=== PATIENT | male | born 1965 | race Two or more races ===

== ENCOUNTER 2024-10-24 15:15 | Emergency (ER) | payer MEDICAID, OTHER ==
[~2024-10-24] VITALS: Ht 167.6 cm; Wt 72.7 kg
[2024-10-24 15:25] VITALS: PULSE 73; RESP 17; O2SAT 98
[2024-10-24] MEDS ORDERED: AUG875T PO (15:40)
[2024-10-24] MEDS ORDERED: IBUP-1455 PO (15:40)
--- NOTE | 2024-10-24 15:41 | ED.PDOC ---
Eye-HPI HPI Comments 59-YEAR-OLD MALE COMPLAINING OF LEFT UPPER TOOTH PAIN X3 OR FOUR DAYS. STATES HE DOES HAVE A HISTORY OF A CRACKED TOOTH IN THE AREA. HE HAS BEEN HAVING PUS AND DRAINAGE OCCASIONALLY. SAYS HE NEEDS ANTIBIOTICS PRIOR TO GOING TO THE DENTIST. Chief Complaint: Tooth Pain Time Seen by MD: 15:24 Primary Care Provider: none Reviewed Notes: Nurses Notes Allergies: Coded Allergies: NO KNOWN ALLERGIES (Unverified , 10/24/24) Information Source: Patient Mode of Arrival: Ambulatory Past Medical History PAST MEDICAL HISTORY: Denies Surgical History: Denies all surgeries Family History Family History: Reviewed,noncontributory to illness, No family hx of Cancer, No family hx of DM, No family hx of Heart kirill, No family hx of HTN, No family hx ofKidney kirill, No family hx of Liver kirill, No family hx of Lung kirill, No family hx of Stroke Constitutional: denies: chills, diaphoresis, fatigue, fever, malaise, sweats, weakness, others EENTM: reports: mouth pain, mouth swelling; denies: blurred vision, double vision, ear bleeding, ear discharge, ear drainage, ear pain, ear ringing, eye pain, eye redness, hearing loss, nasal discharge, nose bleeding, nose congestion, nose pain, photophobia, tearing, throat pain, throat swelling, voice changes, others Respiratory: denies: cough, hemoptysis, orthopnea, SOB at rest, shortness of breath, SOB with excertion, stridor, wheezing, others Cardiovascular: denies: chest pain, dizzy spells, diaphoresis, Dyspnea on exertion, edema, irregular heart beat, left arm pain, lightheadedness, palpitations, PND, syncope, others Gastrointestinal: denies: abdomen distended, abdominal pain, blood streaked bowels, constipated, diarrhea, dysphagia, difficulty swallowing, hematemesis, melena, nausea, poor appetite, poor fluid intake, rectal bleeding, rectal pain, vomiting, others Genitourinary: denies: burning, dysuria, flank pain, frequency, hematuria, incontinence, penile discharge, penile sore, pain, testicle pain, testicle swelling, urgency, others Neurological: denies: dizziness, fainting, headache, left sided numbness, left sided weakness, numbness, paresthesia, pre-existing deficit, right sided numbness, right sided weakness, seizure, speech problems, tingling, tremors, weakness, others Musculoskeletal: denies: back pain, gout, joint pain, joint swelling, muscle pain, muscle stiffness, neck pain, others Integumetry: denies: bruises, change in color, change in hair/nails, dryness, laceration, lesions, lumps, rash, wounds, others Allergic/Immunocompromised: denies: Difficulty Healing, Frequent Infections, Hives, Itching, others Hematologic/Lymphatic: denies: anemia, blood clots, easy bleeding, easy bruising, swollen glands, others Physical Exam General Appearance: No Apparent Distress, Normal HEENT: Normal ENT Inspection, Pharynx Normal, TMs Normal, Other (Cracked tooth 13., swelling noted in the gums above the 13. And 14 tooth. ) Neck: Full Range of Motion, Non-Tender, Normal, Normal Inspection Respiratory: Chest Non-Tender, Lungs Clear, No Accessory Muscle Use, No Respiratory Distress, Normal Breath Sounds Cardiovascular: No Edema, No JVD, No Murmur, No Gallop, Normal Peripheral Pulses, Regular Rate/Rhythm Breast Exam: Deferred Gastrointestinal: No Organomegaly, Non Tender, No Pulsatile Mass, Normal Bowel Sounds, Soft Genitalia: Deferred Pelvic: Deferred Rectal: Deferred Extremities: No calf tenderness, Normal capillary refill, Normal inspection, Normal range of motion, Non-tender, No pedal edema Musculoskeletal : Apperance: Normal Neurologic: Alert, christmas tree farmer II-XII nml as Tested, No Motor Deficits, Normal Affect, Normal Mood, No Sensory Deficits Cerebellar Function: Normal Reflexes: Normal Skin: Dry, Normal Color, Warm Lymphatic: No Adenopathy Was a procedure done? Was a procedure done?: No EENT DIFF Eye: N/A Ear: N/A Nose: N/A Mouth: Other (Dental abscess, dental caries, oral infection) X-Ray, Labs, Meds, VS Vital Signs Date Time Temp Pulse Resp B/P (MAP) Pulse Ox O2 Delivery O2 Flow Rate FiO2 10/24/24 15:25 98.8 73 17 127/83 (98) 98 98.8 10/24/24 15:25 73 17 98 Room Air* 0 21 10/24/24 15:25 98.8 73 17 127/83 (98) 98 X-Ray, Labs, Meds, VS Comment Imaging: X-rays and CT scans were reviewed and interpreted by this provider, imaging shows no fractures and no pathological disease. Pending radiology review. Laboratory: Labs reviewed and interpreted by this provider. No significant abnormalities noted. Patient has prior medical visits reviewed. Med reconciliation performed Vital signs reviewed Time of 1ST Reevaluation: 15:40 Reevaluation 1ST: Improved Patient Education/Counseling: Diagnosis, Treatment, Need For Follow Up (Patient advised to follow-up in the emergency room in the next 24 to 48 hours if symptoms do not improve. Advised follow-up with PCP in the next 3 to 5 days. Patient verbalized understanding. ) Family Education/Counseling: Diagnosis Departure 1 Departure Time of Disposition: 15:40 Impression: Primary Impression: Dental abscess Disposition: HOME / SELF CARE / HOMELESS Condition: Fair e-Prescriptions Ibuprofen Micronized (Ibuprofen) 800 Mg Tab 800 MG PO TID, #30 TAB Prov: RUDDY STAPLES 10/24/24 Amoxicillin & Pot Clavulanate (AUGMENTIN TABLET) 875 Mg Tb 875 MG PO BID for 10 Days, #20 TAB Prov: RUDDY STAPLES 10/24/24 Discharged With: Self Critical Care Note Critical Care Time?: No Stability Stability form required: No Heart Score Heart Score: Heart Score Response (Comments) Value History N/A 0 EKG N/A 0 Age N/A 0 Risk Factors N/A 0 Troponin N/A 0 Total 0 RUDDY STAPLES Oct 24, 2024 15:41
[2024-10-24 17:51] VITALS: BP 122/80; PULSE 70; RESP 17; TEMP 98.2; O2SAT 98
== END 2024-10-24 17:52 | disposition home or self-care (01) ==
LOC: ER 15:15
DX: K04.7 Periapical abscess without sinus (principal)

== ENCOUNTER 2025-01-13 09:30 | Inpatient (IN) | payer MEDICAID, OTHER ==
[~2025-01-13] VITALS: Ht 167.6 cm; Wt 84.1 kg
[~2025-01-13 09:30] MED LIST: AUG875T PO; IBUP-1455 PO
--- NOTE | 2025-01-13 09:46 | ECG ---
[facility] Test Date: 2025-01-13 Test Time: 09:42:04 Pat Name: KIKE FRITZ Department: ER Room: [facility] Gender: M Software Quality Assurance Analyst: RACIEL : 1965 Requested By: ANTONY COVINGTON Order Number: [id number] Reading MD: Kenny Joy Measurements Intervals Rough And Ready Rate: 94 P: 76 MD: 153 QRS: 100 QRSD: 86 T: -11 QT: 347 QTc: 434 Interpretive Statements Sinus rhythm Right axis deviation Consider left ventricular hypertrophy Borderline T abnormalities, inferior leads Baseline wander in lead(s) I,II,aVR,aVL,aVF Electronically Signed On 01-18-2025 20:28:36 PDT by Kenny Joy Please click the below link to view image of tracing.
[2025-01-13 09:57] LABS: Basophils # (auto) 0.1 10 ^3/uL (0-0.2); Basophils % (auto) 0.8 % (0.0-2.0); Eosinophils # (auto) 0.4 10 ^3/uL (0-0.8); Eosinophils % (auto) 4.9 % (0.0-7.0); Hematocrit 44.2 % (41.0-53.0); Hemoglobin 14.7 g/dL (13.5-17.5); Lymphocytes # (auto) 1.9 10 ^3/uL (0.4-5.4); Lymphocytes % (auto) 24.1 % (10.0-50.0); Mean Corpuscular Hgb Conc. 33.2 g/dL (32.0-36.0); Mean Corpuscular Volume 87.4 fL (80.0-100.0); Monocytes # (auto) 0.8 10 ^3/uL (0-1.3); Monocytes % (auto) 9.8 % (0.0-12.0); Neutrophils # (auto) 4.9 10 ^3/uL (1.6-8.6); Neutrophils % (auto) 60.4 % (37.0-80.0); Nucleated Red Blood Cells % 0.1 %; Platelet Count (auto) 241 10^3/uL (140-450); Red Blood Cells 5.06 10^6/uL (4.5-5.90); Red Cell Distribution Width 15.3 % (11.8-14.3); White Blood Cell 8.1 10^3/uL (4.4-10.8)
--- NOTE | 2025-01-13 10:21 | ED.PDOC ---
GI ASSESSMENT HPI Comments A 59 YEAR OLD MALE PRESENTS TO THE ED WITH COMPLAINT OF AN EPIGASTRIC PAIN AND MUSCLE CRAMPS. PATIENT STATES HE HAS BEEN EXPERIENCING EPIGASTRIC CRAMPS THAT RADIATES TO THE RIGHT UPPER QUADRANT OF HIS ABDOMEN FOR THE PAST 2 DAYS. PATIENT REPORTS SHE WAS ALSO BEEN EXPERIENCING GENERALIZED MUSCLE CRAMPS, AND WOULD LIKE TO BE EVALUATED FOR POSSIBLE RHABDOMYOLYSIS HE STATES HE HAS HAD RHABDOMYOLYSIS IN THE PAST AND FEELS LIKE HE MAY HAVE IT ONCE AGAIN. PATIENT NOTES THAT HE WAS WORKING OUTSIDE IN THE SUN/HEAT 2 DAYS AGO. AFTER THAT, HE STARTED HAVING EPIGASTRIC ABD CRAMPS, BODY MUSCLE SPASM AND PROMPTING HIM TO ER FOR EVALUATION FOR POSSIBLE RHABDOMYOLYSIS. PATIENT DENIES FEVER, CHILLS, SHORTNESS OF BREATH, CHEST PAIN, NAUSEA, VOMITING, HEADACHE, OR OTHER COMPLAINTS. NO OTHER SYMPTOMS OR MODIFYING FACTORS AT THIS TIME. PATIENT IS ALERT, ORIENTED X 4, AND HAS STEADY GAIT. Chief Complaint: BODY MUSCLE PAIN Time Seen by MD: 09:39 Reviewed Notes: Nurses Notes, Medications, Allergies Allergies: Coded Allergies: NO KNOWN ALLERGIES (Unverified , 01/13/25) Information Source: Patient Mode of Arrival: Ambulatory Timing: Days Duration: Since onset, Days Prehospital treatment: None Quality: Aching, Cramping Vomitus: None Stool: Normal Severity: Moderate Recent: None Recent Hx of: None Pain Location: Epigastric, RUQ Modifying Factors: Nothing Associated sign and symptoms: Nausea, Abdominal Pain Past Medical History PAST MEDICAL HISTORY: GERD Past Medical History (Other): RHABDOMYOLYSIS Surgical History: Denies all surgeries Family History Family History: Reviewed,noncontributory to illness Social History Smoker: Non-Smoker Alcohol: Denies ETOH Use Drugs: Denies Drug Use Lives In: Home Constitutional: denies: chills, diaphoresis, fatigue, fever, malaise, sweats, weakness, others EENTM: denies: blurred vision, double vision, ear bleeding, ear discharge, ear drainage, ear pain, ear ringing, eye pain, eye redness, hearing loss, mouth pain, mouth swelling, nasal discharge, nose bleeding, nose congestion, nose pain, photophobia, tearing, throat pain, throat swelling, voice changes, others Respiratory: denies: cough, hemoptysis, orthopnea, SOB at rest, shortness of breath, SOB with excertion, stridor, wheezing, others Cardiovascular: denies: chest pain, dizzy spells, diaphoresis, Dyspnea on exertion, edema, irregular heart beat, left arm pain, lightheadedness, palpitations, PND, syncope, others Gastrointestinal: reports: abdominal pain; denies: abdomen distended, blood streaked bowels, constipated, diarrhea, dysphagia, difficulty swallowing, hematemesis, melena, nausea, poor appetite, poor fluid intake, rectal bleeding, rectal pain, vomiting, others Genitourinary: denies: burning, dysuria, flank pain, frequency, hematuria, incontinence, penile discharge, penile sore, pain, testicle pain, testicle swelling, urgency, others Neurological: denies: dizziness, fainting, headache, left sided numbness, left sided weakness, numbness, paresthesia, pre-existing deficit, right sided numbness, right sided weakness, seizure, speech problems, tingling, tremors, weakness, others Musculoskeletal: reports: muscle pain; denies: back pain, gout, joint pain, joint swelling, muscle stiffness, neck pain, others Integumetry: denies: bruises, change in color, change in hair/nails, dryness, laceration, lesions, lumps, rash, wounds, others Allergic/Immunocompromised: denies: Difficulty Healing, Frequent Infections, Hives, Itching, others Hematologic/Lymphatic: denies: anemia, blood clots, easy bleeding, easy bruising, swollen glands, others Endocrine: denies: excessive hunger, excessive sweating, excessive thirst, excessive urination, flushing, intolerance to cold, intolerance to heat, unexplained weight gain, unexplained weight loss, others Psychiatric: denies: anxiety, bipolar disorder, depression, hopeless, panic disorder, schizophrenia, sleepless, suicidal, others All Other Systems: Reviewed and Negative Physical Exam General Appearance: No Apparent Distress, Normal HEENT: Normal ENT Inspection, PERRL/EOMI, Pharynx Normal, TMs Normal Neck: Full Range of Motion, Non-Tender, Normal, Normal Inspection Respiratory: Chest Non-Tender, Lungs Clear, No Accessory Muscle Use, No Respiratory Distress, Normal Breath Sounds Cardiovascular: No Edema, No JVD, No Murmur, No Gallop, Normal Peripheral Pulses, Regular Rate/Rhythm Breast Exam: Deferred Gastrointestinal: Epigastric, No Organomegaly, No Pulsatile Mass, Normal Bowel Sounds, Soft, Tenderness (MILD TENDERNESS ON EPIGASTRIC TO RIGHT UPPER ABD, NO GUARDING AND REBOUND TENDERNESS. ) Genitalia: Deferred Pelvic: Deferred Rectal: Deferred Extremities: No calf tenderness, Normal capillary refill, Normal inspection, Normal range of motion, Non-tender, No pedal edema Musculoskeletal : Apperance: Normal Neurologic: Alert, nanotechnician II-XII nml as Tested, No Motor Deficits, Normal Affect, Normal Mood, No Sensory Deficits Cerebellar Function: Normal Reflexes: Normal Skin: Dry, Normal Color, Warm Peripheral Pulses: 2+ carotid (R), 2+ carotid (L) Lymphatic: No Adenopathy Was a procedure done? Was a procedure done?: No GI differential Dx Differential Diagnosis: Cholecystitis, Gastritis/PUD, Pancreatitis, Dehydration, Electrolyte Imbalance, Viral Other Differential Diagnosis RHABDOMYOLYSIS X-Ray, Labs, Meds, VS Vital Signs Date Time Temp Pulse Resp B/P (MAP) Pulse Ox O2 Delivery O2 Flow Rate FiO2 01/13/25 10:06 96 20 97 Room Air 01/13/25 10:06 97.6 96 20 181/83 (115) 97 97.6 01/13/25 09:42 94 01/13/25 09:38 97.6 96 20 51/83 (72) 97 97.6 Lab Test 01/13/25 10:04 01/13/25 09:49 Range/Units Urine Color Yellow Yellow Urine Clarity Clear Clear Urine pH 5.5 5.0-9.0 Urine Specific Wayne 1.039 H 1.001-1.035 Urine Protein Trace H Negative Urine Ketones Trace Negative Urine Blood Negative Negative /uL Urine Nitrite Negative Negative Urine Bilirubin Negative Negative Urine Urobilinogen 2 H Negative mg/dL Urine Leukocyte Esterase Negative Negative /uL Urine RBC 1 0 - 3 /hpf Urine Microscopic WBC 1 0-3 /HPF Urine Squamous Epithelial Cells Few <5 /hpf Urine Amorphous Crystals Few None Seen /hpf Urine Bacteria None seen None Seen /hpf Urine Mucus Few None Seen Urine Glucose Normal Normal mg/dL Urine Opiates Screen Neg NEGATIVE Urine Fentanyl Screen Neg NEGATIVE Urine Barbiturates Screen Neg NEGATIVE Urine Phencyclidine Screen Neg NEGATIVE Urine Amphetamines Screen Pos NEGATIVE Urine Benzodiazepines Screen Neg NEGATIVE Urine Cocaine Screen Neg NEGATIVE Urine Cannabinoids Screen Pos NEGATIVE White Blood Count 8.1 4.4-10.8 10^3/uL Red Blood Count 5.06 4.5-5.90 10^6/uL Hemoglobin 14.7 13.5-17.5 g/dL Hematocrit 44.2 41.0-53.0 % Mean Corpuscular Volume 87.4 80.0-100.0 fL Mean Corpuscular Hemoglobin 29.0 28.0-32.0 pg Mean Corpuscular Hemoglobin Concent 33.2 32.0-36.0 g/dL Red Cell Distribution Width 15.3 H 11.8-14.3 % Platelet Count 241 140-450 10^3/uL Mean Platelet Volume 8.6 6.9-10.8 fL Neutrophils (%) (Auto) 60.4 37.0-80.0 % Lymphocytes (%) (Auto) 24.1 10.0-50.0 % Monocytes (%) (Auto) 9.8 0.0-12.0 % Eosinophils (%) (Auto) 4.9 0.0-7.0 % Basophils (%) (Auto) 0.8 0.0-2.0 % Neutrophils # (Auto) 4.9 1.6-8.6 10 ^3/uL Lymphocytes # (Auto) 1.9 0.4-5.4 10 ^3/uL Monocytes # (Auto) 0.8 0-1.3 10 ^3/uL Eosinophils # (Auto) 0.4 0-0.8 10 ^3/uL Basophils # (Auto) 0.1 0-0.2 10 ^3/uL Nucleated Red Blood Cells 0.1 % Sodium Level 138 136-145 mmol/L Potassium Level 4.0 3.5-5.1 mmol/L Chloride Level 105 98-107 mmol/L Carbon Dioxide Level 21 20-31 mmol/L Anion Gap 12 5-15 Blood Urea Nitrogen 15 9-23 mg/dL Creatinine 1.05 0.700-1.30 mg/dL Glomerular Filtration Rate Calc 82 >90 mL/min BUN/Creatinine Ratio 14.3 10.0-20.0 Serum Glucose 128 H 74-106 mg/dL Calcium Level 9.9 8.7-10.4 mg/dL Total Bilirubin 2.0 H 0.2-1.0 mg/dL Direct Bilirubin Pending Aspartate Amino Transferase (AST) 42 H 13-40 U/L Alanine Aminotransferase (ALT) 38 7-40 U/L Alkaline Phosphatase 103 46-116 U/L Creatine Kinase 983 H 46-171 U/L Total Protein 8.1 5.7-8.2 g/dL Albumin 4.8 3.2-4.8 g/dL Lipase 43 12-53 U/L Plasma/Serum Blood Alcohol < 3.0 <10 mg/dL Current Medications Medications (Trade) Dose Ordered Sig/Rita Route Start Time Stop Time Status Last Admin Sodium Chloride 1,000 ml @ 1,000 mls/hr Q1H ONCE IV 01/13/25 11:30 01/13/25 12:29 DC 01/13/25 11:32 Sodium Chloride 1,000 ml @ 1,000 mls/hr Q1H ONCE IV 01/13/25 11:30 01/13/25 12:29 DC 01/13/25 12:12 Sodium Chloride 1,000 ml @ 1,000 mls/hr Q1H ONCE IV 01/13/25 13:45 01/13/25 14:44 01/13/25 13:46 EXAM: US Abdomen Limited, Gallbladder CLINICAL INDICATION: RIGHT UPPER ABD PAIN TECHNIQUE: Real-time ultrasound of the right upper quadrant with image documentation. COMPARISON: None FINDINGS: LIVER: Liver measures up to 17.4 cm. Fatty infiltration of the liver. GALLBLADDER: Contracted gallbladder. Negative Acevedo's sign was reported by the product safety associate. No gallstones. COMMON BILE DUCT: Unremarkable as visualized. No stones. No dilation. Common bile duct measures 0.41 cm in diameter. PANCREAS: Unremarkable as visualized. RIGHT KIDNEY: Right kidney measures up to 8.75 cm. OTHER FINDINGS: . . IMPRESSION: Fatty infiltration of the liver. No convincing evidence of acute cholecystitis. ATED BY: DEVONTE HYMAN MD DICTATED DATE/TIME: 01/13/251201 SIGNED BY: DEVONTE HYMAN MD SIGNED DATE/TIME: 01/13/25 120 CC: X-Ray, Labs, Meds, VS Comment EXTERNAL MEDICAL RECORDS REVIEWED: [NONE] INDEPENDENT HISTORIANS: [NONE] SOCIAL DETERMINANTS OF HEALTH: [NONE] LABS ORDERED: CBC, CMP, LIPASE, UDS, UA, ETOH, CPK REVIEWED AND INTERPRETED RESULTS: CPK [id number], METHAMPHETAMINE POSITIVE, CANNABIS POSITIVE IMAGING ORDERED: US ABDOMEN TREATMENTS ORDERED: NS 3L IV PROCEDURES PERFORMED: NONE CRITICAL CARE TIME: NONE I HAVE DISCUSSED THE PATIENT WITH THE ATTENDING PHYSICIAN DR. JACKSON AND HE AGREES WITH THE PATIENT'S PLAN OF CARE. UPON MY PHYSICAL EXAMINATION, THE PATIENT WAS ILL IN APPEARANCE, BUT WAS IN NO ACUTE RESPIRATORY DISTRESS AT THIS TIME. DUE TO THE PATIENT'S HISTORY OF RHABDOMYOLYSIS IN HIS CURRENT LABS REVEALING ACUTE RHABDOMYOLYSIS, I HAVE DETERMINED THE PATIENT NEEDS TO BE ADMITTED FOR FURTHER TREATMENT AND EVAL UATION. THE ON-CALL HOSPITALIST WILL BE CONTACTED FOR ADMISSION IN HIS THE PATIENT. Images Reviewed?: Images reviewed and evaluated by me Time of 1ST Reevaluation: 13:00 Reevaluation 1ST: Unchanged Patient Education/Counseling: Diagnosis, Treatment Family Education/Counseling: Diagnosis, Treatment Departure 1 Departure Time of Disposition: 13:00 Impression: Primary Impression: Exertional rhabdomyolysis Additional Impression: Polysubstance abuse Disposition: ADMITTED INPATIENT Condition: Serious Critical Care Note Critical Care Time?: No Stability Stability form required: Yes Unstable for transfer: Requires medication, ED Physician Assesment, Possible rapid decline I personally scribed for ANTONY COVINGTON ([email or web address]) on 01/13/25 at 10:21. Electronically submitted by Tong Daily ([email or web address]). I personally scribed for ANTONY COVINGTON ([email or web address]) on 01/13/25 at 12:07. Electronically submitted by Tong Daily ([email or web address]). I personally scribed for ANTONY COVINGTON ([email or web address]) on 01/13/25 at 13:11. Electronically submitted by Tong Daily ([email or web address]). I personally scribed for ANTONY COVINGTON ([email or web address]) on 01/13/25 at 13:38. Electronically submitted by Tong Daily ([email or web address]). ANTONY COVINGTON January 13, 2025 10:21
[2025-01-13 10:22] LABS: Alanine Aminotransferase 38 U/L (7-40); Alkaline Phosphatase 103 U/L (46-116); Anion Gap 12 (5-15); BUN/Creatinine Ratio 14.3 (10.0-20.0); Blood Urea Nitrogen 15 mg/dL (9-23); Calcium 9.9 mg/dL (8.7-10.4); Carbon Dioxide 21 mmol/L (20-31); Chloride 105 mmol/L (98-107); Sodium 138 mmol/L (136-145); Total Protein 8.1 g/dL (5.7-8.2)
[2025-01-13 10:23] LABS: Albumin 4.8 g/dL (3.2-4.8); Aspartate Aminotransferase 42 U/L (13-40); Glucose 128 mg/dL (74-106)
[2025-01-13 10:43] LABS: Blood Alcohol < 3.0 mg/dL (<10)
[2025-01-13 11:09] LABS: Creatine Kinase IFCC 983 U/L (46-171)
[2025-01-13] MEDS: SODIUM CHLORIDE 0.9% 1,000 ML IV ONE ×3 (11:32→13:46)
--- NOTE | 2025-01-13 12:04 | DVH ---
EXAM: US Abdomen Limited, Gallbladder CLINICAL INDICATION: RIGHT UPPER ABD PAIN TECHNIQUE: Real-time ultrasound of the right upper quadrant with image documentation. COMPARISON: None FINDINGS: LIVER: Liver measures up to 17.4 cm. Fatty infiltration of the liver. GALLBLADDER: Contracted gallbladder. Negative Acevedo's sign was reported by the tile shader. No g allstones. COMMON BILE DUCT: Unremarkable as visualized. No stones. No dilation. Common bile duct measures 0.41 cm in diameter. PANCREAS: Unremarkable as visualized. RIGHT KIDNEY: Right kidney measures up to 8.75 cm. OTHER FINDINGS: . . IMPRESSION: Fatty infiltration of the liver. No convincing evidence of acute cholecystitis.
[2025-01-13 12:09] LABS: Lipase 43 U/L (12-53)
[2025-01-13 13:03] LABS: Urine Bacteria None Seen /hpf (None Seen)
[2025-01-13 13:28] LABS: Urine Amorphous Crystal FEW /hpf (None Seen); Urine Blood Negative /uL (Negative); Urine Clarity Clear (Clear); Urine Color Yellow (Yellow); Urine Mucus FEW (None Seen); Urine Protein, UAD TRACE (Negative); Urine Specific Gravity 1.039 (1.001-1.035); Urine Squamous Epithelial Cell FEW /hpf (<5); Urine Urobilinogen 2 mg/dL (Negative); Urine WBC 1 /HPF (0-3); Urine pH 5.5 (5.0-9.0)
[2025-01-13 13:34] LABS: Amphetamine Screen, Urine Pos (NEGATIVE)
[2025-01-13 13:35] LABS: Cannabinoid Screen, Urine Pos (NEGATIVE)
[2025-01-13 13:36] LABS: Barbiturate Scree,Urine Neg (NEGATIVE); Benzodiazephine Screen, Urine Neg (NEGATIVE); Cocaine Screen, Urine Neg (NEGATIVE); Opiate Scree,Urine Neg (NEGATIVE); Phencyclidine Screen, Urine Neg (NEGATIVE)
--- NOTE | 2025-01-13 15:32 | DVHHP2 ---
History of Present Illness Reason for Visit: Abdominal pain History of Present Illness This is a 59-year-old male presents to ED with chief complaint of 2 day history of epigastric pain and muscle cramps that radiates to his right upper quadrant. The patient reports that he was experiencing generalized muscle cramps and would like to be evaluated for possible rhabdomyolysis as he states he has had this in the past and feels like he may have it once again. Patient notes that he was working outside in the sun/heat for two days without hydrating himself. The patient will be admitted under hospitalist care to the medical-surgical unit for further evaluation and treatment. The patient denies fever, chills, shortness of breath, chest pain, nausea, vomiting, headache or other complaint. No other symptoms or modifying factors at this time as patient is alert oriented x4, and has a steady gait. GI: GERD Past Medical History Rhabdomyolysis Past Surgical History: None Family History: None Smoke: No ALCOHOL: none Drugs: Marijuana Lives: Friends Domestic Violence: Neg Review of Systems Constitutional: Yes: Weakness Gastrointestinal: Other (Epigastric pain) Musculoskeletal: other (Muscle cramps) Allergies: Coded Allergies: NO KNOWN ALLERGIES (Unverified , 01/13/25) Medications Current Medications Medications Dose Ordered Sig/Rita Route Start Time Stop Time Status Last Admin Dose Admin Pantoprazole Sodium 40 mg DAILY IV 01/14/25 10:00 Sodium Chloride 1,000 ml @ 120 mls/hr Q8H20M IV 01/13/25 14:30 Enoxaparin Sodium 40 mg DAILY SC 01/14/25 10:00 Acetaminophen 650 mg Q6HP PRN PO 01/13/25 14:30 Exam Vital Signs Vital Signs Date Time Temp Pulse Resp B/P (MAP) Pulse Ox O2 Delivery O2 Flow Rate FiO2 01/13/25 14:44 97.8 77 16 107/62 (77) 97 97.8 01/13/25 10:06 Room Air General Appearance: Alert, Oriented X3, Cooperative, No acute distress HEENT: Atraumatic, PERRLA, Mucous membr. moist/pink Respiratory: Clear to auscultation, Normal air movement Cardiovascular: Normal S1, Normal S2, No murmurs Abdominal: Normal bowel sounds, Soft, No hepatospenomegaly, No masses Extremities: No clubbing, No cyanosis, No edema, Normal pulses, No tenderness/swelling Skin: No rashes, No breakdown Neuro: Normal gait, Normal speech, Strength at 5/5 X4 ext, Normal tone, Sensation intact, Cranial nerves 3-12 NL, Reflexes 2+ Psych/Mental Status: Mental status NL, Mood NL Labs/Xrays Labs Test 01/13/25 10:04 01/13/25 09:49 Range/Units Urine Color Yellow Yellow Urine Clarity Clear Clear Urine pH 5.5 5.0-9.0 Urine Specific [place] 1.039 H 1.001-1.035 Urine Protein Trace H Negative Urine Ketones Trace Negative Urine Blood Negative Negative /uL Urine Nitrite Negative Negative Urine Bilirubin Negative Negative Urine Urobilinogen 2 H Negative mg/dL Urine Leukocyte Esterase Negative Negative /uL Urine RBC 1 0 - 3 /hpf Urine Microscopic WBC 1 0-3 /HPF Urine Squamous Epithelial Cells Few <5 /hpf Urine Amorphous Crystals Few None Seen /hpf Urine Bacteria None seen None Seen /hpf Urine Mucus Few None Seen Urine Glucose Normal Normal mg/dL Urine Opiates Screen Neg NEGATIVE Urine Fentanyl Screen Neg NEGATIVE Urine Barbiturates Screen Neg NEGATIVE Urine Phencyclidine Screen Neg NEGATIVE Urine Amphetamines Screen Pos NEGATIVE Urine Benzodiazepines Screen Neg NEGATIVE Urine Cocaine Screen Neg NEGATIVE Urine Cannabinoids Screen Pos NEGATIVE White Blood Count 8.1 4.4-10.8 10^3/uL Red Blood Count 5.06 4.5-5.90 10^6/uL Hemoglobin 14.7 13.5-17.5 g/dL Hematocrit 44.2 41.0-53.0 % Mean Corpuscular Volume 87.4 80.0-100.0 fL Mean Corpuscular Hemoglobin 29.0 28.0-32.0 pg Mean Corpuscular Hemoglobin Concent 33.2 32.0-36.0 g/dL Red Cell Distribution Width 15.3 H 11.8-14.3 % Platelet Count 241 140-450 10^3/uL Mean Platelet Volume 8.6 6.9-10.8 fL Neutrophils (%) (Auto) 60.4 37.0-80.0 % Lymphocytes (%) (Auto) 24.1 10.0-50.0 % Monocytes (%) (Auto) 9.8 0.0-12.0 % Eosinophils (%) (Auto) 4.9 0.0-7.0 % Basophils (%) (Auto) 0.8 0.0-2.0 % Neutrophils # (Auto) 4.9 1.6-8.6 10 ^3/uL Lymphocytes # (Auto) 1.9 0.4-5.4 10 ^3/uL Monocytes # (Auto) 0.8 0-1.3 10 ^3/uL Eosinophils # (Auto) 0.4 0-0.8 10 ^3/uL Basophils # (Auto) 0.1 0-0.2 10 ^3/uL Nucleated Red Blood Cells 0.1 % Sodium Level 138 136-145 mmol/L Potassium Level 4.0 3.5-5.1 mmol/L Chloride Level 105 98-107 mmol/L Carbon Dioxide Level 21 20-31 mmol/L Anion Gap 12 5-15 Blood Urea Nitrogen 15 9-23 mg/dL Creatinine 1.05 0.700-1.30 mg/dL Glomerular Filtration Rate Calc 82 >90 mL/min BUN/Creatinine Ratio 14.3 10.0-20.0 Serum Glucose 128 H 74-106 mg/dL Calcium Level 9.9 8.7-10.4 mg/dL Total Bilirubin 2.0 H 0.2-1.0 mg/dL Direct Bilirubin 0.4 H <0.3 mg/dL Aspartate Amino Transferase (AST) 42 H 13-40 U/L Alanine Aminotransferase (ALT) 38 7-40 U/L Alkaline Phosphatase 103 46-116 U/L Creatine Kinase 983 H 46-171 U/L Total Protein 8.1 5.7-8.2 g/dL Albumin 4.8 3.2-4.8 g/dL Lipase 43 12-53 U/L Plasma/Serum Blood Alcohol < 3.0 <10 mg/dL ORDERING PHYSICIAN: ANTONY COVINGTON PROCEDURE(s): GBUS - GALLBLADDER REASON: RIGHT UPPER ABD PAIN ORDER NUMBER(s): [id number], ACCESSION NUMBER(s): [id number] EXAM: US Abdomen Limited, Gallbladder CLINICAL INDICATION: RIGHT UPPER ABD PAIN TECHNIQUE: Real-time ultrasound of the right upper quadrant with image documentation. COMPARISON: None FINDINGS: LIVER: Liver measures up to 17.4 cm. Fatty infiltration of the liver. GALLBLADDER: Contracted gallbladder. Negative Acevedo's sign was reported by the veneer taping machine operator. No gallstones. COMMON BILE DUCT: Unremarkable as visualized. No stones. No dilation. Common bile duct measures 0.41 cm in diameter. PANCREAS: Unremarkable as visualized. RIGHT KIDNEY: Right kidney measures up to 8.75 cm. OTHER FINDINGS: . . IMPRESSION: Fatty infiltration of the liver. No convincing evidence of acute cholecystitis. ATED BY: DEVONTE HYMAN MD DICTATED DATE/TIME: 01/13/25 1202 SIGNED BY: DEVONTE HYMAN MD SIGNED DATE/TIME: 01/13/25 1202 CC: Assessment/Plan Assessment/Plan Abdominal pain--chief complaint of epigastric pain associated with muscle cramps x2 days Patient states working outside in the sun/heat for two days without hydration History of rhabdomyolysis Admit to medical-surgical unit Reviewed CBC which is normal CK 983 Lipase 43 BMP which is normal UDS shows positive amphetamine and cannabinoids Reviewed urinalysis which is normal Reviewed gallbladder ultrasound shows fatty infiltrate to liver IV hydration IV Toradol now and p.r.n. CK in a.m. We will consider to consult ecmo specialist if needed GERD IV Protonix now and daily Reconcile home med DVT prophylaxis PUD prophylaxis Labs in a.m. Discussed plan of care with the patient in which all questions concerns have been addressed Plan discussed with: Patient My Orders Orders - BALWINDER MCNEIL Procedure Category Date Status Time Pantoprazole PHA 01/14/25 In Process (Protonix) 10:00 Creatine Kinase LAB 01/14/25 Verified 04:00 *Dr. Gregg Monroy CONS 01/13/25 Transmitted -[place] 14:21 Admit ADMIT 01/13/25 Transmitted 14:24 2 Gm Sodium Diet DIET 01/13/25 Transmitted Dinner Sodium Chloride 0.9% PHA 01/13/25 In Process 14:30 Enoxaparin Sodium PHA 01/14/25 In Process (Lovenox) 10:00 Complete Blood Count LAB 01/14/25 Verified 04:00 Comprehensive LAB 01/14/25 Verified Metabolic Panel 04:00 Condition: Fair MICHEL 01/13/25 In Process 14:24 Acetaminophen Tablet PHA 01/13/25 In Process (Tylenol Tablet) 14:30 Bedrest With Bathroom MICHEL 01/13/25 In Process Privileg 14:24 Date of Service: January 13, 2025 Billing Provider: KAHKOSKO,BALWINDER P BRIDGE WELDER Common Visit Codes: [id number] INP/OBS CARE (HIGH) BALWINDER MCNEIL BRIDGE WELDER January 13, 2025 15:32
[2025-01-13 16:11] VITALS: BP 107/62; PULSE 77; RESP 16; TEMP 97.8; O2SAT 97
[2025-01-13] MEDS: SODIUM CHLORIDE 0.9% 1,000 ML IV SCH (16:16)
[2025-01-13] MEDS: PANTOPRAZOLE 40 MG/10 ML VIAL INJ IV ONE (16:20)
[2025-01-13 17:00] VITALS: BP 118/72; PULSE 66; RESP 18; TEMP 97.7; O2SAT 97
[2025-01-13 19:34] VITALS: PULSE 67; RESP 17; O2SAT 98
[2025-01-13 21:00] VITALS: BP 110/72; PULSE 73; RESP 16; TEMP 97.7; O2SAT 96
[2025-01-14] VITALS (8 sets, daily range): BP systolic 98–131; BP diastolic 56–77; PULSE 63–75; RESP 16–20; TEMP 97.7–98.7; O2SAT 92–98
[2025-01-14 06:54] LABS: Basophils # (auto) 0.1 10 ^3/uL (0-0.2); Basophils % (auto) 1.3 % (0.0-2.0); Eosinophils # (auto) 0.4 10 ^3/uL (0-0.8); Eosinophils % (auto) 8.4 % (0.0-7.0); Hematocrit 39.1 % (41.0-53.0); Hemoglobin 12.7 g/dL (13.5-17.5); Lymphocytes # (auto) 1.2 10 ^3/uL (0.4-5.4); Lymphocytes % (auto) 29.4 % (10.0-50.0); Mean Corpuscular Hemoglobin 28.7 pg (28.0-32.0); Mean Corpuscular Hgb Conc. 32.3 g/dL (32.0-36.0); Mean Corpuscular Volume 88.7 fL (80.0-100.0); Monocytes # (auto) 0.4 10 ^3/uL (0-1.3); Monocytes % (auto) 9.6 % (0.0-12.0); Neutrophils # (auto) 2.1 10 ^3/uL (1.6-8.6); Neutrophils % (auto) 51.3 % (37.0-80.0); Platelet Count (auto) 194 10^3/uL (140-450); Red Blood Cells 4.41 10^6/uL (4.5-5.90); White Blood Cell 4.2 10^3/uL (4.4-10.8)
[2025-01-14 07:12] LABS: Alanine Aminotransferase 25 U/L (7-40); Albumin 3.6 g/dL (3.2-4.8); Alkaline Phosphatase 77 U/L (46-116); Anion Gap 9 (5-15); Aspartate Aminotransferase 25 U/L (13-40); BUN/Creatinine Ratio 15.7 (10.0-20.0); Blood Urea Nitrogen 11 mg/dL (9-23); Calcium 8.7 mg/dL (8.7-10.4); Carbon Dioxide 22 mmol/L (20-31); Glucose 98 mg/dL (74-106); Potassium 4.1 mmol/L (3.5-5.1); Sodium 141 mmol/L (136-145); Total Protein 6.2 g/dL (5.7-8.2)
[2025-01-14 07:13] LABS: Bilirubin, Total 0.8 mg/dL (0.2-1.0)
[2025-01-14 07:14] LABS: Chloride 110 mmol/L (98-107)
[2025-01-14] MEDS: ACETAMINOPHEN 325 MG TAB PO PRN (08:50)
[2025-01-14] MEDS: PANTOPRAZOLE 40 MG/10 ML VIAL INJ IV SCH (10:00)
[2025-01-14] MEDS: ENOXAPARIN SOD 40 MG/0.4 ML SYRINGE SC SCH (10:00)
--- NOTE | 2025-01-14 12:22 | DVHPN2 ---
Reviewed: Care Plan, H&P, Labs, Medications, Previous Orders, Radiology Changes from previous H/P or p: No Changes General: Per HPI Gastrointestinal: Other (Epigastric pain) Musculoskeletal: other (Muscle cramps) Objective Vitals Vital Signs Date Time Temp Pulse Resp B/P (MAP) Pulse Ox O2 Delivery O2 Flow Rate FiO2 01/14/25 09:00 97.8 72 16 105/60 (75) 95 97.8 01/14/25 07:30 Room Air* 0 21 Intake/Output Intake and Output 01/14/25 07:00 Intake Total 3960 ml Balance 3960 ml Intake Oral 860 ml IV Total 3100 ml # Voids 2 # Bowel Movements 2 Medications Current Medications Medications Dose Ordered Sig/Rita Route Start Time Stop Time Status Last Admin Dose Admin Pantoprazole Sodium 40 mg DAILY IV 01/14/25 10:00 Sodium Chloride 1,000 ml @ 120 mls/hr Q8H20M IV 01/13/25 14:30 01/14/25 02:34 120 MLS/HR Enoxaparin Sodium 40 mg DAILY SC 01/14/25 10:00 Acetaminophen 650 mg Q6HP PRN PO 01/13/25 14:30 01/14/25 08:50 650 MG Laboratory Results Laboratory Tests 01/14/25 05:54 Chemistry Test 01/14/25 05:54 Albumin 3.6 g/dL (3.2-4.8) Calcium Level 8.7 mg/dL (8.7-10.4) Total Protein 6.2 g/dL (5.7-8.2) LFT Test 01/14/25 05:54 Alanine Aminotransferase (ALT) 25 U/L (7-40) Alkaline Phosphatase 77 U/L (46-116) Aspartate Amino Transferase (AST) 25 U/L (13-40) Total Bilirubin 0.8 mg/dL (0.2-1.0) Urinalysis Test 01/13/25 10:04 Urine Color Yellow (Yellow) Urine Clarity Clear (Clear) Urine pH 5.5 (5.0-9.0) Urine Specific [place] 1.039 (1.001-1.035) Urine Protein Trace (Negative) H Urine Ketones Trace (Negative) Urine Blood Negative /uL (Negative) Urine Nitrite Negative (Negative) Urine Bilirubin Negative (Negative) Urine Urobilinogen 2 mg/dL (Negative) H Urine Leukocyte Esterase Negative /uL (Negative) Urine RBC 1 /hpf (0 - 3) Urine Microscopic WBC 1 /HPF (0-3) Urine Squamous Epithelial Cells Few /hpf (<5) Urine Amorphous Crystals Few /hpf (None Seen) Urine Bacteria None seen /hpf (None Seen) Urine Mucus Few (None Seen) Urine Glucose Normal mg/dL (Normal) Assessment/Plan Assessment/Plan Abdominal pain--chief complaint of epigastric pain associated with muscle cramps x2 days History of rhabdomyolysis GERD nannette Plan discussed with: Patient Date of Service: January 14, 2025 Billing Provider: MARIANA ALVARADO DO Common Visit Codes: [id number] INP/OBS CARE(HIGH) MARIANA ALVARADO DO January 14, 2025 12:22
[2025-01-14] MEDS: guaiFENesin-DM 100/10mg/5ml SYR PO PRN (15:28)
--- NOTE | 2025-01-14 15:45 | DVHINCON2 ---
Date of service: January 14, 2025 Reason for Consultation nannette History of Present Illness 59 years old male with past medical history of presented with chief complaints of weakness and epigastric pain patient working in heat and admits to not hydrating well Denies any urinary complaints denies any Chronic kidney disease history Feels better today Past Medical History As per HPI Allergies: Coded Allergies: NO KNOWN ALLERGIES (Unverified , 01/13/25) Home Meds Unable to Obtain Active Prescriptions or Reported Meds Current Medications Current Medications Medications (Trade) Dose Ordered Sig/Rita Route PRN Reason Start Time Stop Time Status Last Admin Pantoprazole Sodium (Protonix) 40 mg DAILY IV 01/14/25 10:00 Enoxaparin Sodium (Lovenox) 40 mg DAILY SC 01/14/25 10:00 Guaifenesin/ Dextromethorphan (Robitussin-Dm Liquid) 10 ml Q4HP PRN PO FOR COUGH 01/14/25 13:00 01/14/25 15:28 Family History: Patient reports no known family medical history. Review of Systems As per HPI H&P Exam Vital Signs/I&O Vital Sign Date Time Temp Pulse Resp B/P (MAP) Pulse Ox O2 Delivery O2 Flow Rate FiO2 01/14/25 13:00 98.7 75 16 131/77 (95) 97 98.7 01/14/25 07:30 Room Air* 0 21 Intake and Output 01/13/25 01/14/25 19:00 07:00 Intake Total 2360 ml 1600 ml Balance 2360 ml 1600 ml Intake Oral 360 ml 500 ml IV Total 2000 ml 1100 ml # Voids 1 1 # Bowel Movements 1 1 Physical Exam General-not in any distress HEENT-normocephalic, no icterus, no pallor, neck supple Respiratory-fair air entry bilateral, no rhonchi, no wheeze [id number] heard, no murmurs appreciated Abdominal-soft, nontender, nondistended Musculoskeletal-no pedal edema, no calf tenderness Genitourinary-deferred Neuro-awake alert oriented x3, Psychiatric-not agitated, cooperative, Labs/Diagnostic Data Labs/Diagnostic Data Laboratory Tests Test 01/14/25 05:54 01/13/25 10:04 01/13/25 09:49 Range/Units White Blood Count 4.2 #L 8.1 4.4-10.8 10^3/uL Red Blood Count 4.41 L 5.06 4.5-5.90 10^6/uL Hemoglobin 12.7 L 14.7 13.5-17.5 g/dL Hematocrit 39.1 #L 44.2 41.0-53.0 % Mean Corpuscular Volume 88.7 87.4 80.0-100.0 fL Mean Corpuscular Hemoglobin 28.7 29.0 28.0-32.0 pg Mean Corpuscular Hemoglobin Concent 32.3 33.2 32.0-36.0 g/dL Red Cell Distribution Width 15.0 H 15.3 H 11.8-14.3 % Platelet Count 194 241 140-450 10^3/uL Mean Platelet Volume 9.7 8.6 6.9-10.8 fL Neutrophils (%) (Auto) 51.3 60.4 37.0-80.0 % Lymphocytes (%) (Auto) 29.4 24.1 10.0-50.0 % Monocytes (%) (Auto) 9.6 9.8 0.0-12.0 % Eosinophils (%) (Auto) 8.4 H 4.9 0.0-7.0 % Basophils (%) (Auto) 1.3 0.8 0.0-2.0 % Neutrophils # (Auto) 2.1 4.9 1.6-8.6 10 ^3/uL Lymphocytes # (Auto) 1.2 1.9 0.4-5.4 10 ^3/uL Monocytes # (Auto) 0.4 0.8 0-1.3 10 ^3/uL Eosinophils # (Auto) 0.4 0.4 0-0.8 10 ^3/uL Basophils # (Auto) 0.1 0.1 0-0.2 10 ^3/uL Nucleated Red Blood Cells 0.0 0.1 % Sodium Level 141 138 136-145 mmol/L Potassium Level 4.1 4.0 3.5-5.1 mmol/L Chloride Level 110 H 105 98-107 mmol/L Carbon Dioxide Level 22 21 20-31 mmol/L Anion Gap 9 12 5-15 Blood Urea Nitrogen 11 15 9-23 mg/dL Creatinine 0.70 1.05 0.700-1.30 mg/dL Glomerular Filtration Rate Calc 107 82 >90 mL/min BUN/Creatinine Ratio 15.7 14.3 10.0-20.0 Serum Glucose 98 128 H 74-106 mg/dL Calcium Level 8.7 9.9 8.7-10.4 mg/dL Total Bilirubin 0.8 2.0 H 0.2-1.0 mg/dL Aspartate Amino Transferase (AST) 25 42 H 13-40 U/L Alanine Aminotransferase (ALT) 25 38 7-40 U/L Alkaline Phosphatase 77 103 46-116 U/L Creatine Kinase 548 H 983 H 46-171 U/L Total Protein 6.2 8.1 5.7-8.2 g/dL Albumin 3.6 4.8 3.2-4.8 g/dL Urine Color Yellow Yellow Urine Clarity Clear Clear Urine pH 5.5 5.0-9.0 Urine Specific [place] 1.039 H 1.001-1.035 Urine Protein Trace H Negative Urine Ketones Trace Negative Urine Blood Negative Negative /uL Urine Nitrite Negative Negative Urine Bilirubin Negative Negative Urine Urobilinogen 2 H Negative mg/dL Urine Leukocyte Esterase Negative Negative /uL Urine RBC 1 0 - 3 /hpf Urine Microscopic WBC 1 0-3 /HPF Urine Squamous Epithelial Cells Few <5 /hpf Urine Amorphous Crystals Few None Seen /hpf Urine Bacteria None seen None Seen /hpf Urine Mucus Few None Seen Urine Glucose Normal Normal mg/dL Urine Opiates Screen Neg NEGATIVE Urine Fentanyl Screen Neg NEGATIVE Urine Barbiturates Screen Neg NEGATIVE Urine Phencyclidine Screen Neg NEGATIVE Urine Amphetamines Screen Pos NEGATIVE Urine Benzodiazepines Screen Neg NEGATIVE Urine Cocaine Screen Neg NEGATIVE Urine Cannabinoids Screen Pos NEGATIVE Direct Bilirubin 0.4 H <0.3 mg/dL Lipase 43 12-53 U/L Plasma/Serum Blood Alcohol < 3.0 <10 mg/dL Assessment Acute kidney injury likely secondary to prerenal etiology Elevated CK Recommendations Renal function improved with IV fluids No further renal recs I will sign off this case reconsult if needed Plan discussed with: Patient GAGAN MEYERS MD January 14, 2025 15:45
[2025-01-15] VITALS (7 sets, daily range): BP systolic 92–130; BP diastolic 51–81; PULSE 56–72; RESP 16–20; TEMP 97.8–98.5; O2SAT 94–96
--- NOTE | 2025-01-15 14:29 | DVHPN2 ---
Subjective He is still complaining of abdominal pain but he says it is getting better He is still complaining of severe left elbow pain however which he says it has not improved Reviewed: Care Plan, H&P, Labs, Medications, Previous Orders, Radiology Changes from previous H/P or p: Changes (ck) General: Per HPI Gastrointestinal: Other (Epigastric pain) Musculoskeletal: other (Muscle cramps) Objective Vitals Vital Signs Date Time Temp Pulse Resp B/P (MAP) Pulse Ox O2 Delivery O2 Flow Rate FiO2 01/15/25 13:00 98.2 72 18 122/81 (95) 95 98.2 01/15/25 08:00 Room Air* 0 21 Intake/Output Intake and Output 01/15/25 07:00 Intake Total 2100 ml Balance 2100 ml Intake Oral 1400 ml IV Total 700 ml # Voids 3 General Appearance: Alert, Oriented X3 Lungs: Clear to auscultation, Normal air movement Cardiovascular: Regular rate, Normal S1, Normal S2 Abdomen: Normal bowel sounds, Soft, No tenderness Extremities: No edema Medications Current Medications Medications Dose Ordered Sig/Rita Route Start Time Stop Time Status Last Admin Dose Admin Pantoprazole Sodium 40 mg DAILY IV 01/14/25 10:00 Sodium Chloride 1,000 ml @ 120 mls/hr Q8H20M IV 01/13/25 14:30 01/15/25 09:36 120 MLS/HR Enoxaparin Sodium 40 mg DAILY SC 01/14/25 10:00 Acetaminophen 650 mg Q6HP PRN PO 01/13/25 14:30 01/14/25 08:50 650 MG Guaifenesin/ Dextromethorphan 10 ml Q4HP PRN PO 01/14/25 13:00 01/15/25 09:36 10 ML Laboratory Results Laboratory Tests 01/14/25 05:54 Urinalysis Test 01/13/25 10:04 Urine Color Yellow (Yellow) Urine Clarity Clear (Clear) Urine pH 5.5 (5.0-9.0) Urine Specific [place] 1.039 (1.001-1.035) Urine Protein Trace (Negative) H Urine Ketones Trace (Negative) Urine Blood Negative /uL (Negative) Urine Nitrite Negative (Negative) Urine Bilirubin Negative (Negative) Urine Urobilinogen 2 mg/dL (Negative) H Urine Leukocyte Esterase Negative /uL (Negative) Urine RBC 1 /hpf (0 - 3) Urine Microscopic WBC 1 /HPF (0-3) Urine Squamous Epithelial Cells Few /hpf (<5) Urine Amorphous Crystals Few /hpf (None Seen) Urine Bacteria None seen /hpf (None Seen) Urine Mucus Few (None Seen) Urine Glucose Normal mg/dL (Normal) Assessment/Plan Assessment/Plan Abdominal pain Rhabdomyolysis Left elbow joint pain GERD Plan Order CT scan of the abdomen and pelvis Order CT scan of the left elbow to rule out septic arthritis [place] p.r.n. for the pain Continue IV fluids Check the CK again in the morning Plan discussed with: Patient My Orders Orders - CHERI PAN MD Procedure Category Date Status Time Ct Ab Pel Wo Con-No CT 01/15/25 Logged Oral Or Iv 14:20 Ct L Elbow Wo Contrast CT 01/15/25 Logged 14:20 Date of Service: January 15, 2025 Billing Provider: CHERI PAN MD Common Visit Codes: [id number] INP/OBS CARE(HIGH) CHERI PAN MD January 15, 2025 14:29
--- NOTE | 2025-01-15 17:06 | DVH ---
CT abdomen and pelvis without contrast INDICATION: abd pain TECHNIQUE: Serial axial images were performed through the abdomen and pelvis and then reformatted in the sagittal and coronal plane. All CT scans at this medical facility are performed using dose modula tion techniques as appropriate to a performed exam including the following: Automated exposure contro l was utilized; adjustment of the MA and/or KvP according to patient size; and use of iterative recon struction technique. FINDINGS: Bibasilar infiltrates are present. Liver and spleen are normal in size without focal mass. No renal masses, stones or hydronephrosis. No masses or enlargement of the adrenal glands or pancreas . No biliary dilatation. No gallstones. No distention of bowel loops to suggest mechanical obstructio n of bowel. The appendix is normal in appearance. No free fluid. Within the pelvis, bladder is smooth walled without stones. No abnormal masses or fluid collections. IMPRESSION: 1. No acute pathology in the abdomen or pelvis. There are bibasilar infiltrates with trace pleural ef fusions. Computed Tomographic Radiation Dosimetry Report: Total CTDI vol = 15 mGy Total DLP = 886 mGy-cm Low d ose protocols were performed.
--- NOTE | 2025-01-15 17:20 | DVH ---
CT LEFT elbow HISTORY: pain. Patient unable to move elbow from side COMPARISON: TECHNIQUE: Multiple axial CT images of the left lower extremity were obtained without intravenous con trast. Coronal and sagittal bone and soft tissue reformations were also obtained. One or more of the following radiation dose reduction techniques were used for this examination: automated exposure con trol, adjustment of the mA and/or kV according to patient size, use of iterative reconstruction techn ique. CTDI 32 mGy DLP 804 mGy cm FINDINGS: No fractures of the distal humerus or of the proximal radius or ulna. Articular surfaces ar e smooth. No joint effusion No abnormal masses or fluid collections in the soft tissues. IMPRESSION: 1. There is no bony pathology present. Recommend MRI to rule out soft tissue pathology
[2025-01-15] MEDS: HYDROcodone-ACET 5/325MG TAB PO PRN (20:44)
[2025-01-16 01:00] VITALS: BP 112/70; PULSE 66; RESP 19; TEMP 98.3; O2SAT 93
[2025-01-16 05:00] VITALS: BP 111/62; PULSE 76; RESP 17; TEMP 97.8; O2SAT 92
[2025-01-16 09:00] VITALS: BP 117/60; PULSE 63; RESP 16; TEMP 98.3; O2SAT 96
--- NOTE | 2025-01-16 12:03 | DVHDS2 ---
Discharge Summary Date of Admission January 13, 2025 at 14:24 Date of Discharge: January 16, 2025 Labs/Diagnostic Data: Laboratory Results Test 01/16/25 06:31 01/14/25 05:54 01/13/25 10:04 01/13/25 09:49 Creatine Kinase 151 U/L (46-171) White Blood Count 4.2 10^3/uL (4.4-10.8) Red Blood Count 4.41 10^6/uL (4.5-5.90) Hemoglobin 12.7 g/dL (13.5-17.5) Hematocrit 39.1 % (41.0-53.0) Mean Corpuscular Volume 88.7 fL (80.0-100.0) Mean Corpuscular Hemoglobin 28.7 pg (28.0-32.0) Mean Corpuscular Hemoglobin Concent 32.3 g/dL (32.0-36.0) Red Cell Distribution Width 15.0 % (11.8-14.3) Platelet Count 194 10^3/uL (140-450) Mean Platelet Volume 9.7 fL (6.9-10.8) Neutrophils (%) (Auto) 51.3 % (37.0-80.0) Lymphocytes (%) (Auto) 29.4 % (10.0-50.0) Monocytes (%) (Auto) 9.6 % (0.0-12.0) Eosinophils (%) (Auto) 8.4 % (0.0-7.0) Basophils (%) (Auto) 1.3 % (0.0-2.0) Neutrophils # (Auto) 2.1 10 ^3/uL (1.6-8.6) Lymphocytes # (Auto) 1.2 10 ^3/uL (0.4-5.4) Monocytes # (Auto) 0.4 10 ^3/uL (0-1.3) Eosinophils # (Auto) 0.4 10 ^3/uL (0-0.8) Basophils # (Auto) 0.1 10 ^3/uL (0-0.2) Nucleated Red Blood Cells 0.0 % Sodium Level 141 mmol/L (136-145) Potassium Level 4.1 mmol/L (3.5-5.1) Chloride Level 110 mmol/L (98-107) Carbon Dioxide Level 22 mmol/L (20-31) Anion Gap 9 (5-15) Blood Urea Nitrogen 11 mg/dL (9-23) Creatinine 0.70 mg/dL (0.700-1.30) Glomerular Filtration Rate Calc 107 mL/min (>90) BUN/Creatinine Ratio 15.7 (10.0-20.0) Serum Glucose 98 mg/dL (74-106) Calcium Level 8.7 mg/dL (8.7-10.4) Total Bilirubin 0.8 mg/dL (0.2-1.0) Aspartate Amino Transferase (AST) 25 U/L (13-40) Alanine Aminotransferase (ALT) 25 U/L (7-40) Alkaline Phosphatase 77 U/L (46-116) Total Protein 6.2 g/dL (5.7-8.2) Albumin 3.6 g/dL (3.2-4.8) Urine Color Yellow (Yellow) Urine Clarity Clear (Clear) Urine pH 5.5 (5.0-9.0) Urine Specific [place] 1.039 (1.001-1.035) Urine Protein Trace (Negative) Urine Ketones Trace (Negative) Urine Blood Negative /uL (Negative) Urine Nitrite Negative (Negative) Urine Bilirubin Negative (Negative) Urine Urobilinogen 2 mg/dL (Negative) Urine Leukocyte Esterase Negative /uL (Negative) Urine RBC 1 /hpf (0 - 3) Urine Microscopic WBC 1 /HPF (0-3) Urine Squamous Epithelial Cells Few /hpf (<5) Urine Amorphous Crystals Few /hpf (None Seen) Urine Bacteria None seen /hpf (None Seen) Urine Mucus Few (None Seen) Urine Glucose Normal mg/dL (Normal) Urine Opiates Screen Neg (NEGATIVE) Urine Fentanyl Screen Neg (NEGATIVE) Urine Barbiturates Screen Neg (NEGATIVE) Urine Phencyclidine Screen Neg (NEGATIVE) Urine Amphetamines Screen Pos (NEGATIVE) Urine Benzodiazepines Screen Neg (NEGATIVE) Urine Cocaine Screen Neg (NEGATIVE) Urine Cannabinoids Screen Pos (NEGATIVE) Direct Bilirubin 0.4 mg/dL (<0.3) Lipase 43 U/L (12-53) Plasma/Serum Blood Alcohol < 3.0 mg/dL (<10) Other Laboratory Tests 01/14/25 05:54 Brief Hx & Hospital Course: Final diagnoses: Abdominal pain undetermined etiology Rhabdomyolysis Left elbow joint pain GERD 59-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 left elbow pain He came here and was found to have rhabdomyolysis His evaluation included a CT scan of the abdomen and pelvis and gallbladder ultrasound which were negative Because of the swelling and pain in his left elbow we did a CT which was also normal He was given IV fluids and his CK improved from 983 on admission to 151 today which is normal He is feeling better and therefore he will be discharged home No new medications Follow up with the primary care physician as soon as possible Condition at Discharge: Stable Final Diagnosis/Problems List Abdominal pain undetermined etiology Rhabdomyolysis Left elbow joint pain GERD Discharge Disposition: Home SNF Discharge Will this Physician continue t: No Discharge Statement: "Patient was advised to return to the ER or call 911 if any headaches, dizziness, shortness of breath, chest pain, abdominal pain, bleeding, fevers, or worsening of medical condition. Patient was counseled about treatment plan, medications, possible side effects, patientverbalized understanding. All questions were answered to the best of my ability. This discharge took greater then 30 minutes in planning, reviewing documentation, counseling the patient, and discussing with other team members." ASSESSMENT ASSESSMENT Assessment Date of Service: January 16, 2025 Billing Provider: CHERI PAN MD Common Visit Codes: 48346-[id number]/[id number] DISCH DAY >30min CHERI PAN MD January 16, 2025 12:03
== END 2025-01-16 15:18 | disposition home or self-care (01) | DRG 351 ==
LOC: ER 09:30 → EDUNIT# 14:24 → OVERFLOW 14:24 → WEST WING 19:12
PROVIDERS: ADMIT Internal Medicine Geriatric Medicine; ATTEND Internal Medicine Geriatric Medicine
DX: M62.82 Rhabdomyolysis (principal); N17.0 Acute kidney failure with tubular necrosis; K76.0 Fatty (change of) liver, not elsewhere classified; K21.9 Gastro-esophageal reflux disease without esophagitis; F19.10 Other psychoactive substance abuse, uncomplicated
CPT/HCPCS: 36415; 73200; 74176; 76705; 80053; 80307; 80320; 81001; 82248; 82550; 83690; 85025; 93005; G0378; J2470